=== PATIENT | male | born 1930 | race Caucasian/White ===

== ENCOUNTER 2016-07-18 18:25 | Emergency (ER) | payer MEDICARE, OTHER ==
[~2016-07-18] VITALS: Ht 172.7 cm; Wt 79.5 kg
[~2016-07-18 18:25] MED LIST: AMOX1TAB11 PO; ASPI-973 PO; CHOL200047 PO; DOCU250C2 PO; DOXA4TAB2 PO; FUR20 PO; HYDR-4003 PO; LACT1CAP60 PO; LISI-567 PO; MELA5TAB14 PO; METO-272 PO; POTA20TA7 PO; SENN17.26 PO; VENL75CA PO; WARF2.5T82 PO; WARF5TAB7 PO
[2016-07-18 18:34] VITALS: BP 190/79; PULSE 67; RESP 16; O2SAT 97
--- NOTE | 2016-07-18 18:41 | ED.REPORT ---
HPI-Abd Pain M 40 and Over Date of Service Jul 18, 2016 ED Provider: Tacos Lozano MD Pt is an 86 y/o male anticoagulated on Warfarin w/ a hx of ischemic cardiomyopathy, CHF, CAD, ischemic bowel, SBO, PE, HTN, a-fib, hyperlipidemia, presenting to the ED c/o abdominal pain and constipation for 5 days. He c/o associated rectal pain. He has been able to pass a small amount of gas. Pt denies diarrhea, vomiting, nausea, bloody stools, melena, CP, SOB, JEFFERSON, blurred vision, fever, chills. He believes his symptoms today are similar to his previous SBO. Abdominal surgeries: appendectomy, inguinal hernia repair Nursing Notes Stated Complaint: ABDOMINAL PAIN Chief Complaint: Male Abdominal Pain Nursing Notes Reviewed: Yes Allergies: Coded Allergies: Mcarzbh-Xbf-Yxf Reductase Inhibitor (Unverified Allergy, Mild, 02/23/16) gabapentin (Unverified Allergy, Mild, 02/23/16) oxycodone (Unverified Allergy, Mild, 02/23/16) Scheduled Amoxicillin/Clav K 500-125 mg (Amoxicillin/Clav K 500-125 mg) 1 Each Tablet 1 TABLET PO BID Aspirin (Aspirin) 81 Mg Tablet 81 MG PO DAILY Cholecalciferol (Vitamin D3) (Vitamin D3) 2,000 Unit Capsule 4,000 UNIT PO DAILY Doxazosin (Cardura) 4 Mg Tablet 4 MG PO HS Furosemide (Furosemide) 20 Mg Tab 40 MG PO DAILY Lactobac Cmb #3/Fos/Pantethine (Probiotic & Acidophilus Cap) 1 Each Capsule 1 EACH PO DAILY Lisinopril (Lisinopril) 20 Mg Tablet 5 MG PO DAILY Metoprolol Succinate ER (Metoprolol Succinate ER) 50 Mg Tab.er.24h 50 MG PO BID Potassium Chloride ER (Klor-Con M20) 20 Meq Tablet 20 MEQ PO BID Venlafaxine ER (Effexor XR) 75 Mg Cap.er.24h 75 MG PO DAILY Warfarin Sodium (Warfarin Sodium) 5 Mg Tablet 5 MG PO Warfarin Sodium (Warfarin Sodium) 2.5 Mg Tablet 7.5 MG PO fridays Scheduled PRN Docusate Sodium (Docusate Sodium) 250 Mg Capsule 250 MG PO DAILY PRN PRN For Constipation Hydrocodone-Acetaminophen 5-325 mg (Hydrocodone-Acetaminophen 5-325 mg) 1 Each Tablet 1 TABLET PO Q4H PRN PRN For Pain Sennosides (Laxative) 17.2 Mg Tablet 17.2 MG PO BID PRN PRN For Constipation Miscellaneous Medications Melatonin (Melatonin) 5 Mg Tablet 5 MG PO General Time Seen by MD: 18:39 Chief Complaint Abdominal pain Hx Obtained From: Patient, EMS Arrived By: Ambulance Sudden in Onset?: No Onset Occurred: 5 days ago Symptom Duration: Since onset Progression since Onset: Constant Location: : Diffuse Quality: Fullness, Painful Radiation: : Does not radiate Severity: Current: Moderate Severity: Maximum: Moderate Recent Healthcare: Previous diagnosis Similar Sx Previous: Yes Past Medical History Past Medical History ischemic cardiomyopathy congestive heart failure coronary artery disease LBBB Post-polio syndrome pulmonary embolism obstructive sleep apnea Reports: Hyperlipidemia, Hypertension Reports: Depression Past Surgical History 2 stents 4 surgeries on right leg 4 spine surgeries Reports: Appendectomy, Inguinal hernia repair, Tonsillectomy Reports: Pacemaker insertion Smoking History Never Smoker Social History Alcohol Use: "Social" Other Social History: Good social support, Local resident Ambulatory Status Independent Review of Systems Constitutional: Denies: Chills, Fever Respiratory: Denies: Non-productive cough, Shortness of breath Cardiovascular: Denies: Chest pain, Dyspnea on exertion GI: Reports: Abdominal pain, Bloody/tarry stool, Constipation, Denies: Diarrhea, Nausea, Vomiting Complete sys rev & neg: except as marked. Physical Exam Initial Vital Signs Vital Signs (First) Date Time Temp Pulse Resp B/P Pulse Ox O2 Delivery O2 Flow Rate FiO2 07/18/16 18:34 36.6 67 16 190/79 97 Room Air Initial VS: Reviewed, Vital signs abnormal Head / Eyes: Atraumatic, Normocephalic, PERRL ENT: Mucous membranes moist, Conjunctiva normal, No scleral icterus Neck: Supple, Full range of motion Extremities: Vascular intact, Neuro intact, No swelling, No tenderness Skin: Warm, Dry, No cyanosis Neurologic: Alert, Oriented, Nonfocal Psychiatric: Mood/affect normal, Behavior normal, Normal thought content General/Constitutional: Awake, Alert, Cooperative, Not toxic appearing Distress / Hydration: Positive: Distress moderate Appearance / Presentation: Positive: In pain Respiratory / Chest: Atraumatic, Breath sounds NL, Breath sounds = bilat, No respiratory distress, No rales, No rhonchi, No wheezing, No retractions, No stridor, No chest tenderness, No chest wall deformity, No crepitus Cardiovascular: Heart rate NL, Regular rhythm, Heart sounds NL, No gallop, No murmurs, No rubs, Cap refill not delayed, Peripheral circulation NL Abdomen: Atraumatic, Soft Tenderness/Guarding/Rebound: Positive: Tender diffuse (moderate) Bowel Sounds / Distention: Positive: Distention mild Back: Full range of motion, Painless range of motion Interpretation & Diagnostics Lab Results Interpretation Result Diagram: 07/18/16185407/18/161854 Test 07/18/16 18:55 07/19/16 00:30 White Blood Count 7.7th/mm3 (3.8-10.1) Red Blood Count 4.76mil/mm3 (4.40-5.80) Hemoglobin 14.4g/dL (13.8-17.2) Hematocrit 41.9% (41.0-50.0) Mean Corpuscular Volume 88.0fL (81-100) Mean Corpuscular Hemoglobin 30.3pg (27.0-35.0) Mean Corpuscular Hemoglobin Concent 34.4% (32.0-37.0) Red Cell Distribution Width 12.3% (12.3-15.4) Platelet Count 213bil/L (150-400) Neutrophils (%) (Auto) 66.5% (40-74) Lymphocytes (%) (Auto) 19.9% (14-46) Monocytes (%) (Auto) 9.2% (4-12) Eosinophils (%) (Auto) 3.8% (0-5) Basophils (%) (Auto) 0.5% (0-3) Prothrombin Time 11.3sec (8.1-12.5) Prothromb Time International Ratio 1.05ratio Sodium Level 131mEq/L (134-144) Potassium Level 4.4mEq/L (3.5-5.2) Chloride Level 98mEq/L (97-108) Carbon Dioxide Level 19mmol/L (18-29) Blood Urea Nitrogen 19mg/dL (8-27) Creatinine 0.79mg/dL (0.76-1.27) Estimat Glomerular Filtration Rate 99mL/min (>59) Glucose Level 111mg/dL (60-99) Lactic Acid Level 0.9mmol/L (0.4-2.0) Calcium Level 9.0mg/dL (8.5-10.1) Magnesium Level 2.2mg/dL (1.6-2.6) Total Bilirubin 0.4mg/dL (0.0-1.2) Aspartate Amino Transf (AST/SGOT) 22U/L (0-50) Alanine Aminotransferase (ALT/SGPT) 18U/L (0-44) Alkaline Phosphatase 58U/L (25-160) Troponin T < 0.010ug/L (0.0-0.011) Total Protein 7.3g/dL (6.4-8.4) Albumin 4.2g/dL (3.4-5.0) Lipase 29U/L (13-60) Urine Color Yellow (YELLOW) Urine Appearance Clear (CLEAR,HAZY) Urine pH 6.0 (5.0-8.0) Urine Specific [place] 1.015 (1.003-1.035) Urine Protein Negativemg/dL (NEG,TRACE) Urine Glucose (UA) Negativemg/dL (NEGATIVE) Urine Ketones Negativemg/dL (NEGATIVE) Urine Occult Blood Small (NEGATIVE) Urine Nitrite Negative (NEGATIVE) Urine Bilirubin Negative (NEGATIVE) Urine Urobilinogen Normalmg/dL (NORMAL) Urine Leukocyte Esterase Negative (NEGATIVE) Urine RBC 11-50/hpf (0-2) Urine WBC 0-5/hpf (0-5) Urine Epithelial Cells Occasional/hpf (NONE-MOD) Urine Crystals None seen (NONE SEEN) Urine Bacteria None/hpf (NONE-FEW) Urine Hyaline Casts None/lpf (NONE) Urine Granular Casts None seen (NONE SEEN) Urine Waxy Casts None seen (NONE SEEN) Urine Red Blood Cell Casts None seen (NONE SEEN) Urine White Blood Cell Casts None seen (NONE SEEN) Urine Mucus None seen (None Seen) Urine Trichomonas None seen (NONE SEEN) Urine Yeast None (NONE SEEN) Urine Culture Reflexed Not indicated ECG Interpretation ECG Interpretation: Sinus rhythm rate [address] elevations Prior EKG reveals a-fib with RvR Time: 18:58 Interpreted by: ED physician Normal ECG Interpretation: No acute ischemic changes X-Ray Chest Interpretation Chest Xray Interpretation: IMPRESSION: No acute cardiopulmonary findings. Dictated by: Jeni Owens M.D. on 07/18/2016 at 19:42 Approved by: Jeni Owens M.D. on 07/18/2016 at 19:43 View: Portable, 1 view Interpretation / Wet Read by: Interpret - Radiologist CT Abd / Pelvis Interpretation IMPRESSION: 1. Large amount of stool the rectosigmoid suspicious for fecal impaction. No evidence for upstream bowel obstruction or ileus. 2. Diverticulosis. No acute diverticulitis. 3. Nonvisualization of the appendix. However, there are no ancillary findings to suggest acute appendicitis. Dictated by: Jeni Owens M.D. on 07/18/2016 at 21:00 Approved by: Jeni Owens M.D. on 07/18/2016 at 21:08 Study type: Abdominal CT IV contrast, Abdom CT oral contrast Procedures Procedure Notes: Procedure: Disimpaction Performed successfully. His stool is grossly bloody - GI will be contacted. Re-Eval/Medical Decision Med Decision/Clinical Course 86-year-old male on warfarin, CHF, CAD, ischemic bowel in past presenting with abdominal pain and decreased bowel movements 5 days. He reports he has not had a stool in 5 days. He is passing gas. Denies any fevers nausea vomiting. CT abdomen and pelvis shows fecal impaction in the rectum but no signs of a bowel obstruction or ischemic bowel. White blood cell count and lactate are normal. I disimpacted the bowel. There was blood in the stool. Hemoglobin is stable at 14. Patient also with bladder distention. Calix was placed with 1200 mL's of urine out. Consulted GI who recommended follow-up as an outpatient. Consulted urology who recommended leaving the Calix in place and calling his urologist on Thursday. Discussed with son who is a family practitioner who agrees with plan. Return precautions given regarding worsening abdominal pain, inability to stool or pass gas, nausea vomiting, fevers, any other new or worsening symptoms. Time of Eval: 00:14 Re-Evaluation/Progress Note: Pt rechecked. Informed pt of plan for treatment. Pt understands and agrees with plan for treatment. F/U instructions and RTER warnings given. All questions addressed. Consultation #1: Call Returned at: 23:28 Loading Checker: Agrees with eval, Agrees with plan Note: Case discussed with GI after viewing grossly bloody stools during disimpaction. Agrees with plan for discharge at this point. Consultation #2: Referral / Consult Name: Siena Florez MD Consulted With: Urology Call Returned at: 00:15 Loading Checker: Agrees with eval, Agrees with plan Note: Agrees with plan to DC pt with Calix in place. Recommends f/u in clinic on Thursday. Counseled Regarding: Diagnosis, Lab results, Need for follow-up, When/why to return to ED Discharge & Departure Primary Impression: Fecal impaction Additional Impressions: Diverticulosis Diverticulosis site: unspecified location Diverticulosis bleeding: diverticulosis without bleeding Qualified Code: K57.90 - Diverticulosis of intestine, part unspecified, without perforation or abscess without bleeding Abdominal pain Abdominal location: generalized Qualified Code: R10.84 - Generalized abdominal pain Urinary retention Disposition: Home Vital Signs - All Vital Signs Date Time Temp Pulse Resp B/P Pulse Ox O2 Delivery O2 Flow Rate FiO2 07/19/16 00:49 36.5 72 18 100/55 94 Room Air 07/18/16 21:00 74 17 167/78 96 Room Air 07/18/16 20:15 64 15 196/89 96 Room Air 07/18/16 19:30 67 14 168/82 67 Room Air 07/18/16 18:34 36.6 67 16 190/79 97 Room Air )( All Prior VS Reviewed: Yes Condition: Stable Patient Instructions: How to Care for Your Calix Catheter (ED) Additional Instructions: Your CT scan today demonstrated that you had a fecal impaction along with a distended bladder indicated urinary retention. We manually disimpacted you and put a Calix catheter in place. Read the depart instructions for how to care for the Calix catheter. I spoke with a Urology today. They would like you to call their office on Thursday to schedule an appointment. Tell them you were seen in the emergency department. Return to the emergency department if you experience vomiting, fever, worsening abdominal pain, bloody stool, or any other new or worsening symptoms. Follow up with your primary care doctor next week. Referrals: Kim Mckinney (PCP) Leah Attestation Portions of this note were transcribed by Jos Greene. I, Dr. Lozano personally performed the history, physical exam and medical decision-making; I reviewed and confirmed the accuracy of the information in the transcribed note. Signed by Leah Leong, 07/18/16 - 1899 copies to: Kim Mckinney Ben M MD Jul 18, 2016 18:41 JOS GREENE Jul 18, 2016 18:57
[2016-07-18] MEDS ORDERED: 0.9% Sodium Chloride 500 ML IV ONE (18:58)
[2016-07-18] MEDS ORDERED: Ondansetron 2 mg/mL 2 mL Inj IVPUSH PRN (19:00)
[2016-07-18] MEDS ORDERED: Iohexol 300 mg/mL 30 mL Inj PO ONE (19:00)
[2016-07-18 19:07] LABS: BASOPHILS % (AUTO) 0.5 % (0-3); EOSINOPHILS % (AUTO) 3.8 % (0-5); MONOCYTES % (AUTO) 9.2 % (4-12); Mean Corpuscular Hemoglobin 30.3 pg (27.0-35.0); NEUTROPHILS % (AUTO) 66.5 % (40-74); Platelet Count 213 bil/L (150-400)
[2016-07-18 19:26] LABS: INR 1.05 ratio
[2016-07-18 19:30] VITALS: BP 168/82; PULSE 67; RESP 14; O2SAT 67
[2016-07-18 19:32] LABS: TROPONIN T < 0.010 ug/L (0.0-0.011)
[2016-07-18 19:42] LABS: Lipase 29 U/L (13-60); Magnesium 2.2 mg/dL (1.6-2.6)
--- NOTE | 2016-07-18 19:45 | DRSVH ---
PROCEDURE: X-RAY CHEST ONE VIEW, PORTABLE ([id number]) INDICATIONS: dyspnea TECHNIQUE: One view of the chest was acquired. COMPARISON: [facility], CR, XR CHEST 1VW (PORTABLE), 02/24/2016, 8:24. FINDINGS: Surgical changes and devices: Cardiac defibrillator is unchanged. Lungs and pleura: No pleural effusions or pneumothorax. Lungs are clear. Mediastinum: Mediastinal contours appear normal. Heart size is normal. The aortic arch is calcifie d and tortuous. Bones and chest wall: No suspicious bony lesions. Patient is status post vertebroplasty at L1. Overl ana soft tissues appear unremarkable. IMPRESSION: No acute cardiopulmonary findings. Dictated by: Jeni Owens M.D. on 07/18/2016 at 19:42 Approved by: Jeni Owens M.D. on 07/18/2016 at 19:43
[2016-07-18 20:15] VITALS: BP 196/89; PULSE 64; RESP 15; O2SAT 96
[2016-07-18 21:00] VITALS: BP 167/78; PULSE 74; RESP 17; O2SAT 96
--- NOTE | 2016-07-18 21:10 | DRSVH ---
PROCEDURE: CT ABDOMEN AND PELVIS WITH CONTRAST ([id number]) INDICATIONS: abd pain TECHNIQUE: After the administration of oral and intravenous contrast, 5 mm thick sections acquired from the diap hragms to the symphysis. 5 mm thick coronal and sagittal reformats were performed. For radiation do se reduction, the following was used: automated exposure control, adjustment of mA and/or kV accordi ng to patient size. COMPARISON: [facility], CT, CHEST/ABD/PELVIS W/CON (PNL), 06/06/2009, 12:08. [facility], CT, CT ABD PELVIS WO CON, 02/23/2016, 6:05. FINDINGS: Image quality: Excellent. ABDOMEN: Lung bases: Lung bases are clear. Heart size is normal. Solid organs: Liver and spleen are normal in size and enhancement. Gallbladder is unremarkable. Bi liary system is non-dilated. Pancreas enhances normally. No adrenal nodules. Kidneys are normal in size and enhancement, without hydronephrosis. There are multiple bilateral exophytic cortical cystic lesions which likely represent simple renal cysts. Peritoneum and bowel: Stomach, small bowel, and colon loops are normal in overall caliber and wall t hickness. There are scattered sigmoid diverticula. No evidence for diverticulitis. There is a large a mount of stool in the rectosigmoid region. No free fluid or air. Nodes and vessels: No retroperitoneal or mesenteric adenopathy. Aorta and inferior vena cava are no rmal in caliber. There are scattered atheromatous calcifications throughout the aorta and iliac arter ies bilaterally. Miscellaneous: No ventral hernias. PELVIS: Genitourinary: Bladder is markedly distended with urine. The bladder is thin walled. Miscellaneous: No inguinal adenopathy. There is a small fluid containing left inguinal hernia. Bones: Severe degenerative change end severe compression deformities at L1 and L5 are redemonstrated. Posterior spinal fixation hardware is grossly intact. Bones are severely osteopenic. The left hip ar throplasty is grossly intact. IMPRESSION: 1. Large amount of stool the rectosigmoid suspicious for fecal impaction. No evidence for upstream amelia wel obstruction or ileus. 2. Diverticulosis. No acute diverticulitis. 3. Nonvisualization of the appendix. However, there are no ancillary findings to suggest acute append icitis. Dictated by: Jeni Owens M.D. on 07/18/2016 at 21:00 Approved by: Jeni Owens M.D. on 07/18/2016 at 21:08
[2016-07-19 00:49] VITALS: BP 100/55; PULSE 72; RESP 18; O2SAT 94
[2016-07-19 01:06] LABS: APPEARANCE,URINE CLEAR (CLEAR,HAZY); COLOR,URINE YELLOW (YELLOW); OCCULT BLOOD,URINE SMALL (NEGATIVE); UROBILINOGEN,URINE NORMAL (NORMAL)
== END 2016-07-19 00:51 | disposition home or self-care (01) ==
LOC: SED 18:25 → EDUNIT# 18:25 → EDBD 18:25 → SED 07-19 00:51
DX: K56.41 Fecal impaction (principal); K57.90 Diverticulosis of intestine, part unspecified, without perforation or abscess without bleeding; R10.84 Generalized abdominal pain; R33.9 Retention of urine, unspecified; I50.9 Heart failure, unspecified; I25.10 Atherosclerotic heart disease of native coronary artery without angina pectoris; I10 Essential (primary) hypertension; E78.5 Hyperlipidemia, unspecified; Z79.01 Long term (current) use of anticoagulants; Z79.82 Long term (current) use of aspirin; Z95.0 Presence of cardiac pacemaker; Z88.5 Allergy status to narcotic agent; Z88.8 Allergy status to other drugs, medicaments and biological substances
CPT/HCPCS: 36415; 51702; 71010; 74177; 80053; 81000; 83605; 83690; 83735; 84484; 85025; 85610; 93005; 96361; 96374; 96375; 96376; 99285; J2270; J2405; J7030; Q9967